=== PATIENT | male | born 1995 ===

== ENCOUNTER 2018-11-21 15:57 | Emergency (ER) | payer BC ==
[2018-11-21] MEDS ORDERED: BOOSTRIX IM ONE ×3 (16:16→18:34)
[2018-11-21 16:17] VITALS: BP 121/59
--- NOTE | 2018-11-21 16:17 | Emergency Department Report ---
Chief Complaint: Animal Bite Stated Complaint: DOG BITE LEFT LEG Time Seen by Provider: 11/21/18 16:15 - HPI History of Present Illness: This is a 23 y.o. male that presents with a dog bite to lateral LLE. Patient states a customer dog bite him when she went into the house. The customer states the dog is up to date on vaccines. - Exam Vital Signs: Vital Signs 11/21/18 16:15 Temperature 98.0 F Pulse Rate 65 Respiratory 18 Rate Blood Pressure 121/59 O2 Sat by Pulse 97 Oximetry MSE screening note: Focused history and physical exam performed. Due to findings the following was ordered: Boostrix ACC for further evaluation. ED Disposition for MSE Condition: Stable
--- NOTE | 2018-11-21 18:29 | Emergency Department Report ---
ED Animal Bite HPI - General Chief Complaint: Animal Bite Stated Complaint: DOG BITE LEFT LEG Time Seen by Provider: 11/21/18 16:15 Source: patient Mode of arrival: Ambulatory Limitations: No Limitations - History of Present Illness Initial Comments: Pt is a 23 yo male who states he was bitten on his LLE today at 12:45 PM. The baseball coach of the dog was present and stated that all vaccines are up to date. The patient states that it was not a puncture wound. He states that he was wearing jeans at the time. He denies any bleeding. He is unsure of his last tetanus immunization. He denies any pain, erythema, or edema. - Related Data Previous Rx's Medication Instructions Recorded Last Taken Type Amoxicillin/Potassium Clav 1 each PO BID 7 Days #14 tablet 11/21/18 Unknown Rx [Augmentin 875-125 Tablet] Allergies Allergy/AdvReac Type Severity Reaction Status Date / Time No Known Allergies Allergy Unverified 11/21/18 16:00 ED Review of Systems ROS: Stated complaint: DOG BITE LEFT LEG Other details as noted in HPI Comment: All other systems reviewed and negative ED Past Medical Hx - Past Medical History Previous Medical History?: No - Social History Smoking Status: Never Smoker Substance Use Type: None - Medications Home Medications: Home Medications Medication Instructions Recorded Confirmed Last Taken Type Amoxicillin/Potassium Clav 1 each PO BID 7 Days #14 tablet 11/21/18 Unknown Rx [Augmentin 875-125 Tablet] ED Physical Exam - General Limitations: No Limitations General appearance: alert, in no apparent distress - Head Head exam: Present: atraumatic, normocephalic - Eye Eye exam: Present: normal appearance - ENT ENT exam: Present: mucous membranes moist - Extremities Exam Extremities exam: Present: full ROM, normal capillary refill, other (several small abrasions to the left lateral rocha, no lacerations, no puncture wounds, no erythema, no warmth, no bleeding, appears clean ). Absent: tenderness, pedal edema, joint swelling, calf tenderness ED Course Vital Signs 11/21/18 16:15 Temperature 98.0 F Pulse Rate 65 Respiratory 18 Rate Blood Pressure 121/59 O2 Sat by Pulse 97 Oximetry Critical care attestation.: If time is entered above; I have spent that time in minutes in the direct care of this critically ill patient, excluding procedure time. ED Disposition Clinical Impression: Animal bite Disposition: DC-01 TO HOME OR SELFCARE Is pt being admited?: No Does the pt Need Aspirin: No Condition: Stable Instructions: Animal Bite (ED) Additional Instructions: Take all medication as prescribed. Follow up with your primary care doctor in the next 2 days. Return to the emergency room for any new or worsening symptoms. Prescriptions: Amoxicillin/Potassium Clav [Augmentin 875-125 Tablet] 1 each PO BID 7 Days #14 tablet Referrals: SANDRA JIN MD [Primary Care Provider] - 2-3 Days Time of Disposition: 18:30 Print Language: VIET[place]ESE
== END 2018-11-21 20:09 | disposition home or self-care (01) ==
LOC: ED 15:57
DX: S81.852A Open bite, left lower leg, initial encounter (principal); W54.0XXA Bitten by dog, initial encounter; Y93.89 Activity, other specified; Y92.89 Other specified places as the place of occurrence of the external cause; Y99.8 Other external cause status
CPT/HCPCS: 90471; 90715